=== PATIENT | male | born 2000 | race Caucasian/White ===

== ENCOUNTER 2024-07-04 13:01 | Emergency (ER) | payer BC ==
[~2024-07-04] VITALS: Ht 180.3 cm; Wt 105.2 kg
[2024-07-04] MEDS: IV NS 0.9% 1,000 ML BAG IV ONE (13:30)
[2024-07-04] MEDS: ONDANSETRON HCL/PF 4 MG/2 ML VIAL IVP ONE (13:30)
[2024-07-04] MEDS ORDERED: ONDA4TAB5 PO (13:46)
[2024-07-04] MEDS ORDERED: ONDANSETRON HCL/PF 4 MG/2 ML VIAL ONE (14:03)
[2024-07-04] MEDS: KETOROLAC TROMETHAMINE 15 MG/ML VIAL IV ONE (15:00)
[2024-07-04] MEDS ORDERED: KETOROLAC TROMETHAMINE 15 MG/ML VIAL ONE (15:01)
[2024-07-04 15:10] LABS: BASOPHILS % (AUTO) 0.1 % (0.0-2.0); HEMATOCRIT 52 % (39-51); LYMPHOCYTES # (AUTO) 1.7 K/uL (0.8-4.8); LYMPHOCYTES % (AUTO) 12.6 % (20.0-44.0); MEAN CORPUSCULAR HEMOGLOBIN 29 PG (26.0-33.0); MEAN CORPUSCULAR HGB CONC 35 g/dl (31.0-36.0); MEAN CORPUSCULAR VOLUME 85 fL (80-96); MONOCYTES # (AUTO) 1.4 K/uL (0.1-1.30); MONOCYTES % (AUTO) 10.1 % (2.0-12.0); NEUTROPHILS # (AUTO) 10.3 K/uL (1.8-8.9); NEUTROPHILS % (AUTO) 77.2 % (43.0-81.0); PLATELET COUNT (AUTO) 333 K/uL (150-450); RED BLOOD CELL COUNT(AUTO) 6.17 MIL/uL (4.5-6.0); RED CELL DISTRIBUTION WIDTH 12.9 % (11.5-15.0); WHITE BLOOD COUNT (AUTO) 13.4 K/uL (4.3-11.0)
[2024-07-04 15:17] LABS: POTASSIUM 3.4 mmol/L (3.5-5.1)
[2024-07-04 15:25] LABS: ALBUMIN 4.9 g/dL (3.4-5.0); BILIRUBIN,DIRECT 0.3 mg/dL (0.0-0.2); BILIRUBIN,TOTAL 1.5 mg/dL (0.2-1.0); TOTAL PROTEIN, SERUM 9.2 g/dL (6.4-8.2)
[2024-07-04] MEDS ORDERED: FAMO20TA80 PO (15:47)
[2024-07-04] MEDS ORDERED: FAMOTIDINE/PF INJ 20 MG/2 ML VIAL IV ONE (16:00)
[2024-07-04 16:02] VITALS: BP 129/81; TEMP 97.7; O2SAT 99
== END 2024-07-04 16:02 | disposition home or self-care (01) ==
LOC: ER 13:11
DX: R11.2 Nausea with vomiting, unspecified (principal); F84.0 Autistic disorder; R10.9 Unspecified abdominal pain; Z87.19 Personal history of other diseases of the digestive system
CPT/HCPCS: 99285; 96374; 76700; 96361; 96375; 85025; 80048; 83690; 80076; 36415; J1885; J2405; J7030